=== PATIENT | female | born 1975 | race Caucasian/White ===

== ENCOUNTER 2019-02-15 20:39 | Emergency (ER) | payer OTHER ==
[2019-02-15 20:51] VITALS: BP 126/74; PULSE 76; TEMP 98.4; BMI 23.0
[2019-02-15] MEDS ORDERED: AZITHROMYCIN 250 MG TABLET PO ONE (22:01)
[2019-02-15] MEDS ORDERED: AZITHROMYCIN 250 MG TABLET ONE (22:03)
--- NOTE | 2019-02-15 23:44 | PDOC ---
Documentation entered by Mendez Love SCRIBE, acting as scribe for Maki Arnold MD. Maki Arnold MD: This documentation has been prepared by the cliffeIvan Aiswarya, SCRIBE, under my direction and personally reviewed by me in its entirety. I confirm that the documentation accurately reflects all work, treatment, procedures, and medical decision making performed by me. History of Present Illness - General Chief Complaint: Respiratory Stated Complaint: COUGH X 2 WEEKS, LEFT EAR PAIN SINCE YESTERDAY Time Seen by Provider: 02/15/19 21:44 History Source: Patient Exam Limitations: No Limitations - History of Present Illness Initial Comments: 02/15/19 22:08 The patient is a 43 year old female, with no significant PMH, who presents to the emergency department for a dry cough that began 2 weeks ago. Patient states she endorses associated symptoms of right ear pain and sore throat. The patient denies asthma, phlegm, chest pain, shortness of breath, headache and dizziness.Denies fever, chills, nausea, vomit, diarrhea and constipation.Denies dysuria, frequency, urgency and hematuria. Allergies: NKDA Past surgical history: None reported Social history: None reported PCP: None reported Past History - Past Medical History Allergies/Adverse Reactions: Allergies Allergy/AdvReac Type Severity Reaction Status Date / Time No Known Allergies Allergy Verified 02/15/19 20:41 Home Medications: Ambulatory Orders Azithromycin 250 mg PO DAILY #4 tablet 02/15/19 Neomycin/Polymyxn/Hc [Cortisporin Otic Suspenstion -] 4 drop AD Q4HWA #1 bottle 02/15/19 - Psycho Social/Smoking Cessation Hx Smoking History: Never smoked Have you smoked in the past 12 months: No Information on smoking cessation initiated: No Hx Alcohol Use: No Drug/Substance Use Hx: No Review of Systems - Review of Systems Able to Perform ROS?: Yes Comments:: 02/15/19 22:10 GENERAL/CONSTITUTIONAL: No fever or chills. No weakness. HEAD, EYES, EARS, NOSE AND THROAT:+sore throat +ear pain. No change in vision. CARDIOVASCULAR: No chest pain or shortness of breath. RESPIRATORY:+cough. No wheezing, or hemoptysis. GASTROINTESTINAL: No nausea, vomiting, diarrhea or constipation. GENITOURINARY: No dysuria, frequency, or change in urination. MUSCULOSKELETAL: No joint or muscle swelling or pain. No neck or back pain. SKIN: No rash NEUROLOGIC: No headache, vertigo, loss of consciousness, or change in strength/ sensation. ENDOCRINE: No increased thirst. No abnormal weight change. HEMATOLOGIC/LYMPHATIC: No anemia, easy bleeding, or history of blood clots. ALLERGIC/IMMUNOLOGIC: No hives or skin allergy. *Physical Exam - Vital Signs Last Vital Signs Temp Pulse Resp BP Pulse Ox 98.4 F 76 15 126/74 97 02/15/19 20:42 02/15/19 20:42 02/15/19 20:42 02/15/19 20:42 02/15/19 20:42 - Physical Exam 02/15/19 22:11 GENERAL: Awake, alert, and fully oriented, in no acute distress HEAD: No signs of trauma EYES: PERRLA, EOMI, sclera anicteric, conjunctiva clear ENT: +right ear canal erythematous and mildly edematous. Tympanic membrane partially obscure with serum but portion that was visualized was normal.. Left ear normal.Hearing grossly normal, nares patent, oropharynx clear without exudates. Moist mucosa NECK: Normal ROM, supple, no lymphadenopathy, JVD, or masses LUNGS: Breath sounds equal, clear to auscultation bilaterally. No wheezes, and no crackles HEART: Regular rate and rhythm, normal S1 and S2, no murmurs, rubs or gallops ABDOMEN: Soft, nontender, normoactive bowel sounds. No guarding, no rebound. No masses EXTREMITIES: Normal range of motion, no edema. No clubbing or cyanosis. No cords, erythema, or tenderness NEUROLOGICAL: Cranial nerves II through XII grossly intact. Normal speech, normal gait SKIN: Warm, Dry, normal turgor, no rashes or lesions noted. ED Progress Note - Progress Note Progress Note: As noted above this 43-year-old woman presents with a 2-week history of nonproductive cough. No history of chronic respiratory illnesses. She has not had fever or wheezing. She also noted right ear discomfort for 1 day exam as noted. Although patient has clear breath sounds on exam with good air exchange, patient will be started on azithromycin Z-Ashwin for prolonged bronchitis, likely at least partly bacterial in origin at this point. Also, exam consistent with acute otitis externa of the right ear: Cortisporin otic suspension will be prescribed. Patient has a general medical doctor: She should follow-up within the next few days but return to the ER if she has severe shortness of breath, high fever Or wheezing Discharge - Discharge Information Problems reviewed: Yes Clinical Impression/Diagnosis: Acute bronchitis Qualifiers: Bronchitis organism: other organism Qualified Code(s): J20.8 - Acute bronchitis due to other specified organisms Acute otitis externa of right ear Qualifiers: Otitis externa type: unspecified type Qualified Code(s): H60.501 - Unspecified acute noninfective otitis externa, right ear Condition: Stable Disposition: HOME - Additional Discharge Information Prescriptions: Azithromycin 250 mg PO DAILY #4 tablet Neomycin/Polymyxn/Hc [Cortisporin Otic Suspenstion -] 4 drop AD Q4HWA #1 bottle - Follow up/Referral - Patient Discharge Instructions Patient Printed Discharge Instructions: DI for Acute Bronchitis, DI for Otitis Externa Additional Instructions: Rest; drink plenty of fluids Use vaporizer in your bedroom at night Azithromycin 250 mg daily for the next 5 days Cortisporin suspension, 4 drops in right ear every 4 hours while awake for 1 week Follow-up with your doctor within the next 3 to 4 days Return to ER if you have shortness of breath,wheezing, high fever, productive cough Print Language: COMORAN - Post Discharge Activity
== END 2019-02-15 22:13 | disposition home or self-care (01) ==
LOC: FER 20:39
DX: J20.8 Acute bronchitis due to other specified organisms (principal); H60.501 Unspecified acute noninfective otitis externa, right ear
CPT/HCPCS: 99281-25

== ENCOUNTER 2019-02-21 21:42 | Emergency (ER) | payer OTHER ==
[2019-02-21 21:46] VITALS: BP 129/76; PULSE 84; TEMP 98.1; BMI 23.0
--- NOTE | 2019-02-21 22:38 | PDOC ---
Documentation entered by Mendez Love SCRIBE, acting as scribe for Rosalee Rodriguez MD. Rosalee Rodriguez MD: This documentation has been prepared by the Ivan rodriguez Aiswarya, SCRIBE, under my direction and personally reviewed by me in its entirety. I confirm that the documentation accurately reflects all work, treatment, procedures, and medical decision making performed by me. History of Present Illness - General Chief Complaint: Cold Symptoms Stated Complaint: COUGH X 1 WEEK Time Seen by Provider: 02/21/19 21:44 History Source: Patient Exam Limitations: No Limitations - History of Present Illness Initial Comments: 02/21/19 22:12 The patient is a 43 year old female, with no significant PMH, who presents to the emergency department with a cough that began 1 week ago. The patient states she came last week regarding a dry cough and physician told her to report back to the ER if patient coughs up phlegm after antibiotics. Patient reports finishing antibiotic treatment but still endorses cough with phlegm and vomiting nonbilious nonbloody for 2 days. She also reports mild sob. The patient denies chest pain, headache and dizziness.Denies fever, chills, nausea, diarrhea and constipation. Denies dysuria, frequency, urgency and hematuria. Allergies: NKDA Past surgical history: None reported Social history: None reported PCP: None reported Past History - Past Medical History Allergies/Adverse Reactions: Allergies Allergy/AdvReac Type Severity Reaction Status Date / Time No Known Allergies Allergy Verified 02/21/19 21:43 Home Medications: Ambulatory Orders Azithromycin 250 mg PO DAILY #4 tablet 02/15/19 Neomycin/Polymyxn/Hc [Cortisporin Otic Suspenstion -] 4 drop AD Q4HWA #1 bottle 02/15/19 COPD: No - Psycho Social/Smoking Cessation Hx Smoking History: Never smoked Have you smoked in the past 12 months: No Hx Alcohol Use: No Drug/Substance Use Hx: No Review of Systems - Review of Systems Able to Perform ROS?: Yes Comments:: 02/21/19 22:03 GENERAL/CONSTITUTIONAL: No fever or chills. No weakness. HEAD, EYES, EARS, NOSE AND THROAT: No change in vision. No ear pain or discharge. No sore throat. CARDIOVASCULAR: +sob. No chest pain. RESPIRATORY: +cough. No wheezing, or hemoptysis. GASTROINTESTINAL:+vomiting. No nausea, diarrhea or constipation. SKIN: No rash NEUROLOGIC: No headache, vertigo, loss of consciousness, or change in strength/ sensation. ENDOCRINE: No increased thirst. No abnormal weight change. HEMATOLOGIC/LYMPHATIC: No anemia, easy bleeding, or history of blood clots. ALLERGIC/IMMUNOLOGIC: No hives or skin allergy. *Physical Exam - Vital Signs Last Vital Signs Temp Pulse Resp BP Pulse Ox 98.1 F 84 15 129/76 100 02/21/19 21:43 02/21/19 21:43 02/21/19 21:43 02/21/19 21:43 02/21/19 21:43 - Physical Exam 02/21/19 22:03 GENERAL: Awake, alert, and fully oriented, in no acute distress HEAD: No signs of trauma EYES: PERRLA, EOMI, sclera anicteric, conjunctiva clear ENT: Auricles normal inspection, hearing grossly normal, nares patent, oropharynx clear without exudates. Moist mucosa NECK: Normal ROM, supple, no lymphadenopathy, JVD, or masses LUNGS: Breath sounds equal, clear to auscultation bilaterally. No wheezes, and no crackles HEART: Regular rate and rhythm, normal S1 and S2, no murmurs, rubs or gallops NEUROLOGICAL: Cranial nerves II through XII grossly intact. Normal speech. SKIN: Warm, Dry, normal turgor, no rashes or lesions noted. ED Treatment Course - RADIOLOGY Radiology Studies Ordered: Category Date Time Status CHEST PA & LAT [RAD] Stat Radiology 02/21/19 21:48 Taken Medical Decision Making - Medical Decision Making 02/21/19 22:28 pt presents to the ED complaining of persistent cough and new phlegm production after treated with z pack for bronchitis two days ago. Pt is well appearing with clear lungs. CXR shows no evidence of PNA. Will discharge home with instructions to return to the ED for worsening symptoms. Discharge - Discharge Information Problems reviewed: Yes Clinical Impression/Diagnosis: Acute bronchitis Qualifiers: Bronchitis organism: unspecified organism Qualified Code(s): J20.9 - Acute bronchitis, unspecified Condition: Stable - Admission No - Additional Discharge Information Prescription Drug Monitoring Program (I-STOP) results: I-STOP not reviewed - Follow up/Referral - Patient Discharge Instructions Patient Printed Discharge Instructions: DI for Acute Bronchitis Additional Instructions: return to the ED for fever, severe cough or shortness of breath, other new or worsening symptoms. Make sure that you follow up with your primary care doctor. - Post Discharge Activity
== END 2019-02-21 22:35 | disposition home or self-care (01) ==
LOC: FER 21:42
DX: J20.9 Acute bronchitis, unspecified (principal)
CPT/HCPCS: 71046-TC-FY; 99281-25